=== PATIENT | female | born 1975 | race Two or more races ===

== ENCOUNTER 2016-08-10 06:23 | Inpatient (IN) | payer MEDICAID ==
[~2016-08-10] VITALS: Ht 157.5 cm; Wt 76.2 kg
[2016-08-10 12:00] VITALS: BP 137/85
--- NOTE | 2016-08-10 12:10 | NUR ---
MS/TIMBER SIZER OPERATOR NOTES ADMITTED PATIENT FROM [facility], [place]IA [place], WITH DX: CHOLELITHIASIS, ACUTE PAIN RUQ. UNDER CARE OF DR. WELLS. A/O X 4, WITHOUT SOB, C/O RUQ SHARP, SHOOTING PAIN, 8/10.DENIES NAUSEA VOMITING. VS 137/85, 84, 19, 97.7, 98. FULL BODY ASSESSMENT DONE, IV LINE LEFT WRIST PATENT. CONTINENT B/B , LBM YESTERDAY. AMBULATORY, ASSISTED PATIENT TO THE ROOM, ORIENTED TO THE ROOM, BED, AND CALL LIGHT SYSTEM. NEEDS ANTICIPATED IN TIMELY MANNER, WITH CALL LIGHT WITHIN EASY REACH. WILL CONTINUE TO MONITOR ACCORDINGLY, AND PAGE MD FOR ADMISSION
[2016-08-10] MEDS: MORPHINE SULFATE INJ 2 MG/ML DISP.SYRIN IV PRN ×2 (14:10→16:56)
[2016-08-10] MEDS ORDERED: PIPERACILLIN /TAZOBACTAM 4.5 G in IV D5W 50 ML IV ONE (15:00)
[2016-08-10] MEDS ORDERED: MAG HYDROX/AL HYDROX/SIMETH 30 ML UDC PO PRN (15:30)
[2016-08-10] MEDS ORDERED: ACETAMINOPHEN 325 MG TABLET PO PRN (15:30)
[2016-08-10] MEDS ORDERED: Z GUARD REMEDY 2 OZ OINT TP PRN (15:30)
[2016-08-10] MEDS ORDERED: IV SET PRIMARY PUMP SET 1 EA INFUS.SET MC ONE (15:42)
[2016-08-10] MEDS ORDERED: SECONDARY IV SET 1 EA INFUS.SET MC ONE ×2 (15:44→20:47)
[2016-08-10 15:53] LABS: CALCIUM, SERUM 8.7 mg/dL (8.5-10.1); CREATININE 0.7 mg/dL (0.6-1.3); POTASSIUM 4.2 mmol/L (3.5-5.1)
[2016-08-10] MEDS: ONDANSETRON HCL/PF 4 MG/2 ML VIAL IVP PRN (15:59)
[2016-08-10] MEDS: IV NS 0.9% 1,000 ML IV PRN (15:59)
[2016-08-10 16:00] VITALS: BP_SYST 119; BP_SYST 128; BP_DIAS 69; BP_DIAS 76
[2016-08-10 17:05] LABS: BASOPHILS % (AUTO) 0.3 % (0.0-2.0); EOSINOPHILS # (AUTO) 0.2 /CMM (0.0-0.7); EOSINOPHILS % (AUTO) 2.4 % (0.0-6.0); HEMATOCRIT 37 % (33-45); HEMOGLOBIN 12.2 g/dL (11.5-14.8); LYMPHOCYTES # (AUTO) 2.5 /CMM (0.8-4.8); LYMPHOCYTES % (AUTO) 25.7 % (20.0-44.0); MEAN CORPUSCULAR HEMOGLOBIN 28 PG (26.0-33.0); MEAN CORPUSCULAR HGB CONC 33 g/dl (31.0-36.0); MEAN CORPUSCULAR VOLUME 85 fL (82-100); MONOCYTES # (AUTO) 0.7 /CMM (0.1-1.30); NEUTROPHILS # (AUTO) 6.2 /CMM (1.8-8.9); NEUTROPHILS % (AUTO) 64.6 % (43.0-81.0); PLATELET COUNT (AUTO) 247 /CMM (150-450); RDW COEFFICIENT OF VARIATION 13.5 (11.5-15.0); RED BLOOD CELL COUNT(AUTO) 4.32 MIL/uL (4.0-5.2); WHITE BLOOD COUNT (AUTO) 9.6 K/uL (4.3-11.0)
[2016-08-10 17:19] LABS: INR 0.94 (0.87-1.13); PROTHROMBIN TIME 10.1 SECS (9.5-12.7)
--- NOTE | 2016-08-10 18:30 | NUR ---
CALLED DR PRISCILLA VILLAVICENCIO (SURGEON) REGARDING PT'S SEVERE ABDOMINAL PAIN NOT RELIEVED BY MORPHINE 2 MG IV GIVEN WITH ORDERS TO CALL DR PRISCILLA TORRES FOR PAIN MEDS.DR PRISCILLA TORRES HAS ALREADY BEEN NOTIFIED EARLIER REGARDING MORPHINE GIVEN IS INEFFECTIVE AND MENTIONED THAT PT RECEIVED DILAUDID IN [place] WITH EFFECTIVE RESULT.DR PRISCILLA TORRES REFUSED TO CHANGE PAIN MED TO DILAUDID IV .
[2016-08-10 18:48] LABS: THYROID STIMULATING HORMONE 3.484 uIU/mL (0.358-3.74)
[2016-08-10 19:00] VITALS: BP 145/94
[2016-08-10] MEDS ORDERED: MORPHINE SULFATE INJ 2 MG/ML DISP.SYRIN IV PRN (19:00)
--- NOTE | 2016-08-10 19:09 | NUR ---
MS/RN CLOSING NOTES PAGED DR. WELLS, REPORTED ABOUT PATIENT NOT GETTING RELIEVED FROM CURRENT PAIN MEDICATION ORDER, WAITING FOR RESPONSE. PATIENT IN BED, AWAKE, ALERT, WITHOUT SOB, GUARDING RIGHT UPPER ABDOMEN D/T SHARP PAIN 02/07. REPOSITIONED PATIENT FOR COMFORT. IV PATENT INFUSING 75 CC/H 1/2 N/S TOLERATING WELL, NO S/SX OF FLUID OVERLOAD, RESPIRATION EVEN, UNLABORED. NEEDS ANTICIPATED IN TIMELY MANNER, WITH CALL LIGHT WITHIN EASY REACH ALL THE TIME. WILL ENDORSE TO THE VENEER STAPLER ACCORDINGLY
--- NOTE | 2016-08-10 19:15 | NUR ---
RN NOTE RECEIVED REPORT. PT AAOX4, C/O OF 910 PAIN IN RUQ. NO S/S OF RESPIRATORY DISTRESS - ON ROOM AIR. IV IN LEFT WRIST INTACT AND PATENT, TOLERATING FLUIDS WELL. KEPT NPO. WILL F/U WITH METAL TRIMMER MD REGARDING PAIN MANAGEMENT. YUNIER SANTACRUZ.
[2016-08-10 20:00] VITALS: BP 137/75
--- NOTE | 2016-08-10 20:30 | NUR ---
RN NOTE SPOKE WITH LEROY DIGITAL ACCOUNT MANAGER, ORDERS CARRIED OUT. RECEIVED DILAUDID 1MG IV. WILL MONITOR FOR EFFECTIVENESS.
[2016-08-10] MEDS: HYDROMORPHONE 1 MG/1 ML DISP.SYRIN IV PRN ×2 (20:44→23:42)
[2016-08-10] MEDS: PIPERACILLIN /TAZOBACTAM 3.375 G in IV D5W 50 ML IV SCH (23:42)
[2016-08-11] VITALS (7 sets, daily range): BP systolic 94–113; BP diastolic 57–75
[2016-08-11] MEDS: ONDANSETRON HCL/PF 4 MG/2 ML VIAL IVP PRN ×3 (00:08→18:19)
--- NOTE | 2016-08-11 01:25 | NUR ---
RN NOTE NO DISTRESS NOTED AT THIS TIME. PT DENIES PAIN. WILL CONT TO MONITOR.
[2016-08-11] MEDS: IV NS 0.9% 1,000 ML IV PRN ×2 (02:08→18:20)
[2016-08-11] MEDS: HYDROMORPHONE 1 MG/1 ML DISP.SYRIN IV PRN ×6 (03:25→20:54)
[2016-08-11] MEDS: PIPERACILLIN /TAZOBACTAM 3.375 G in IV D5W 50 ML IV SCH ×2 (05:50→11:27)
--- NOTE | 2016-08-11 06:14 | NUR ---
RN NOTE PT AAOX4, NO C/O PAIN OR DISCOMFORT AT THIS TIME. BREATHING EVEN AND NON-LABORED. ON ROOM AIR. PRN DILAUDID EFFECTIVE T/O SHIFT. NPO STATUS. TOLERATING IV FLUIDS WELL. CALL LIGHT IN REACH, WILL F/U WITH DAY SHIFT FOR TANK.
[2016-08-11 07:01] LABS: BASOPHILS % (AUTO) 0.2 % (0.0-2.0); EOSINOPHILS # (AUTO) 0.3 /CMM (0.0-0.7); EOSINOPHILS % (AUTO) 2.7 % (0.0-6.0); HEMATOCRIT 36 % (33-45); HEMOGLOBIN 11.9 g/dL (11.5-14.8); LYMPHOCYTES # (AUTO) 1.9 /CMM (0.8-4.8); MEAN CORPUSCULAR HEMOGLOBIN 29 PG (26.0-33.0); MEAN CORPUSCULAR HGB CONC 34 g/dl (31.0-36.0); MEAN CORPUSCULAR VOLUME 86 fL (82-100); MONOCYTES # (AUTO) 0.7 /CMM (0.1-1.30); MONOCYTES % (AUTO) 7.1 % (2.0-12.0); PLATELET COUNT (AUTO) 241 /CMM (150-450); RDW COEFFICIENT OF VARIATION 13.5 (11.5-15.0); RED BLOOD CELL COUNT(AUTO) 4.14 MIL/uL (4.0-5.2); WHITE BLOOD COUNT (AUTO) 9.9 K/uL (4.3-11.0)
[2016-08-11 07:02] LABS: BILIRUBIN,TOTAL 0.7 mg/dL (0.2-1.0); CALCIUM, SERUM 8.6 mg/dL (8.5-10.1); CREATININE 0.7 mg/dL (0.6-1.3); MAGNESIUM 1.9 mg/dL (1.8-2.4); PHOSPHORUS 4.1 mg/dL (2.5-4.9); POTASSIUM 3.9 mmol/L (3.5-5.1); TOTAL PROTEIN, SERUM 6.3 g/dL (6.4-8.2)
--- NOTE | 2016-08-11 08:00 | NUR ---
MS/RN Nausea Zofran administered for nausea. Will assess effectiveness.
[2016-08-11] MEDS: PANTOPRAZOLE 40 MG VIAL IV SCH (08:01)
--- NOTE | 2016-08-11 08:54 | NUR ---
MS/RN AM care Assisted to bathroom, able to perform ADL's.
--- NOTE | 2016-08-11 12:27 | NUR ---
MS/RN IVAB IVAB hung as ordered.
[2016-08-11] MEDS ORDERED: FENTANYL PF 100MCG/2ML AMPUL ONE ×2 (14:11→17:25)
[2016-08-11] MEDS ORDERED: ROCURONIUM BROMIDE 50 MG/5 ML ONE (14:11)
[2016-08-11] MEDS ORDERED: SUCCINYLCHOLINE CHLORIDE 20 MG/ML VIAL ONE (14:11)
--- NOTE | 2016-08-11 14:30 | NUR ---
MS/refrigerator room clerk Patient taken to operating room, chart with patient.
[2016-08-11] MEDS ORDERED: LIDOCAINE HCL/PF 1% 30 ML SDV ONE (14:33)
[2016-08-11] MEDS ORDERED: IOHEXOL 240MG/ML 50 ML IV ONE (14:33)
[2016-08-11] MEDS ORDERED: BUPIVACAINE MPF W/EPI 0.25% 30 ML VIAL ONE ×2 (14:33)
[2016-08-11] MEDS ORDERED: MIDAZOLAM HCL 2 MG/2ML VIAL ONE (14:34)
[2016-08-11] MEDS ORDERED: HYDROMORPHONE INJ 2 MG/ML DISP.SYRIN ONE (17:13)
[2016-08-11] MEDS ORDERED: ANESTHESIA TRAY IN PYXIS 1 EA TRAY MC ONE (17:15)
--- NOTE | 2016-08-11 18:10 | NUR ---
MS/RN Back from OR Patient back from OR, s/p lap audrey. Three incision's with ROSEMARIE, 100ml output. Vital signs taken as per hospital policy, all remain stable. at bedside, will continue to monitor.
--- NOTE | 2016-08-11 18:55 | NUR ---
MS/RN End note No changes at this time, vital signs post surgery remain stable, IV fluids infusing at 75ml/hr via left hand heplock, no signs of infection. Patient provided with warm blanket and pillow to hold against stomach whil coughing to support. at bedside, update provided to both patient and , all questions answered. Will endorse to night shift supervisor.
--- NOTE | 2016-08-11 19:35 | NUR ---
MSRN FULLY AWAKE, AT BEDSIDE, SITTING UP, ENCOURAGED AMBULATION. SAFETY PRECAUTIONS EMPHASIZED, DENIES DIZZINESS. HAS BEEN HAVING GAS PAINS AND PAIN ON RIGHT LATERAL ROSEMARIE SITE. LAP SITES CLEAN AND DRY, NO BLEEDING, ROSEMARIE WITH SANGUINOUS DRAINAGE IN [place]. PAIN MGT AND PLAN OF CARE EMPHASIZED, WELL UNDERSTOOD. PRESENT IVF INFUSING WELL, KEPT NPO, ICECHIPS TOLERATED. NO N/V.
--- NOTE | 2016-08-11 20:55 | NUR ---
MDRN SEVERE ABD DISCOMFORTS SONIA RIGHT LATERAL, DILAUDED 1MG IVP ADMINISTERED.
--- NOTE | 2016-08-11 22:20 | NUR ---
MSRN PLACE CALL TO DR. BECERRIL FOR FURTHER MGT OF PAIN AND ANXIETY.
[2016-08-11] MEDS ORDERED: ZOLPIDEM TARTRATE 5 MG TABLET ONE (22:25)
[2016-08-11] MEDS ORDERED: ZOLPIDEM TARTRATE 5 MG TABLET PO ONE (22:30)
--- NOTE | 2016-08-11 22:30 | NUR ---
MSRN RETURN CALL FROM , ORDERS RECEIVED. ONETIME AMBIEN 5MG ORDERED. NO MED FOR GAS PAINS, EXPLAINED TO PATIENT NEEDED TO INCREASE AMBULATION AND SPACE ACTIVITY. SAT ON BSC FOR NOW, ABLE TO BURP.
[2016-08-12] MEDS: ONDANSETRON HCL/PF 4 MG/2 ML VIAL IVP PRN ×3 (00:04→15:17)
[2016-08-12] MEDS: HYDROMORPHONE 1 MG/1 ML DISP.SYRIN IV PRN ×5 (00:04→15:17)
--- NOTE | 2016-08-12 00:05 | NUR ---
MSRN NAUSEATED, ZOFRAN GIVEN. FOR PAIN ADMINISTERED DILAUDED 1 MG IVP. BEDREST INSTRUCTED.
[2016-08-12] MEDS ORDERED: SECONDARY IV SET 1 EA INFUS.SET MC ONE (02:26)
[2016-08-12] MEDS: PIPERACILLIN /TAZOBACTAM 3.375 G in IV D5W 50 ML IV SCH ×6 (02:30→23:29)
--- NOTE | 2016-08-12 02:45 | NUR ---
MSRN ZOSYN DOSE FOR MIDNIGHT ADMINISTERED LATE AT THIS TIME.
--- NOTE | 2016-08-12 06:30 | NUR ---
MSRN ROSEMARIE DRAIN 60 CC OBTAINED. MEDICATED FOR ABD PAIN DILAUDED AND ZOFRAN FOR NAUSEA. BEDREST INSTRUCTED
[2016-08-12 07:02] LABS: CALCIUM, SERUM 7.7 mg/dL (8.5-10.1); CREATININE 0.6 mg/dL (0.6-1.3); POTASSIUM 3.6 mmol/L (3.5-5.1)
[2016-08-12 07:03] LABS: BASOPHILS % (AUTO) 0.3 % (0.0-2.0); EOSINOPHILS % (AUTO) 0.3 % (0.0-6.0); HEMATOCRIT 35 % (33-45); HEMOGLOBIN 11.4 g/dL (11.5-14.8); LYMPHOCYTES # (AUTO) 1.7 /CMM (0.8-4.8); LYMPHOCYTES % (AUTO) 15.1 % (20.0-44.0); MEAN CORPUSCULAR HEMOGLOBIN 28 PG (26.0-33.0); MEAN CORPUSCULAR HGB CONC 33 g/dl (31.0-36.0); MEAN CORPUSCULAR VOLUME 86 fL (82-100); MONOCYTES # (AUTO) 0.8 /CMM (0.1-1.30); MONOCYTES % (AUTO) 6.9 % (2.0-12.0); NEUTROPHILS # (AUTO) 8.6 /CMM (1.8-8.9); NEUTROPHILS % (AUTO) 77.4 % (43.0-81.0); PLATELET COUNT (AUTO) 246 /CMM (150-450); RDW COEFFICIENT OF VARIATION 13.4 (11.5-15.0); RED BLOOD CELL COUNT(AUTO) 4.02 MIL/uL (4.0-5.2); WHITE BLOOD COUNT (AUTO) 11.1 K/uL (4.3-11.0)
--- NOTE | 2016-08-12 07:49 | NUR ---
MS/RN Patient received Patient received from cage shift manager, sleeping, pain medication last given at 0600. No distress, will continue to monitor.
[2016-08-12 08:22] VITALS: BP 109/66
[2016-08-12] MEDS: PANTOPRAZOLE 40 MG VIAL IV SCH (09:01)
[2016-08-12] MEDS: IV NS 0.9% 1,000 ML IV PRN (09:01)
[2016-08-12 10:18] LABS: ALBUMIN 2.8 g/dL (3.4-5.0); BILIRUBIN,DIRECT 0.1 mg/dL (0.0-0.2); BILIRUBIN,TOTAL 0.6 mg/dL (0.2-1.0); TOTAL PROTEIN, SERUM 6.2 g/dL (6.4-8.2)
--- NOTE | 2016-08-12 10:30 | NUR ---
MS/RN S/B Dr Pascual Seen by Dr Pascual - full liquid diet, simethicone for gas pain and liver function test ordered. From surgical standpoint, cleared for discharge. Needs to follow up in office in one week for drain removal.
--- NOTE | 2016-08-12 11:00 | NUR ---
MS/RN S/B Nickolas Millan MARKETING SUPPORT SPECIALIST Seen by MARKETING SUPPORT SPECIALIST - encouraged to ambulate, will be reassessed later this afternoon, possible for discharge.
[2016-08-12] MEDS: DOCUSATE SODIUM 100 MG CAPSULE PO SCH (11:34)
[2016-08-12] MEDS: HYDROCODONE/APAP 10/325MG 1 EA TABLET PO PRN ×2 (11:34→18:15)
[2016-08-12] MEDS: SIMETHICONE 80 MG TAB.CHEW PO PRN (13:42)
--- NOTE | 2016-08-12 14:48 | NUR ---
MS/RN Rounds Patient now able to ambulate more freely without as much pain. Tolerating oral pain medication, no nausea.
[2016-08-12 16:25] VITALS: BP 116/78
--- NOTE | 2016-08-12 18:00 | NUR ---
MS/RN Pain Patient continues to complain of severe gas pain, despite being given dilaudid and norco. Nickolas Millan called and informed. Per PHOTOGRAPHIC EQUIPMENT ASSEMBLER, no other medication can be given to help relieve the gas pain, best option is to encourage ambulation. Patient made aware.
[2016-08-12 19:00] VITALS: BP 103/58
--- NOTE | 2016-08-12 19:33 | NUR ---
RN NOTE; RECEIVED PT IN BED W/ FAMILY AT THE BED SIDE. BREATHING EVENLY. NO SOB. NO DISTRESS. W/ ON AND OFF C/O ABD. PAIN. NEEDS ATTENDED. BED LOW LOCKED. CALL LIGHT WITHIN REACH . WILL CONT TO MONITOR
--- NOTE | 2016-08-12 19:45 | NUR ---
MS/RN End note Patient's at nursing station and requesting for surgeon to be called due to pain, stated that he was worried that maybe a clip that was used during surgery had come loose or that there was a blockage. requesting that CT scan be ordered. Dr Pascual called via exchange. Per Dr Pascual, pain is too be expected after surgery, order given for toradol 30mg IV q6 hrs, CBC, CMP, lipase and amylase. Ice pack to be applied to incision sites. CT scan not ordered as not required. Patient remains with gas pain not relieved by narcotics, will endorse to overnight cashier.
[2016-08-12] MEDS: KETOROLAC TROMETHAMINE INJ 30 MG/ML VIAL IV PRN (20:16)
--- NOTE | 2016-08-12 20:16 | NUR ---
TORADOL GIVEN FOR C/O ABD PAIN. WILL CONT TO MONITOR
[2016-08-12 20:58] VITALS: BP 103/58
[2016-08-13] MEDS: HYDROMORPHONE 1 MG/1 ML DISP.SYRIN IV PRN ×2 (02:03→08:23)
--- NOTE | 2016-08-13 02:05 | NUR ---
DILAUDID GIVEN FOR C/O SEVERE ABD PAIN. WILL CONT TO MONITOR
[2016-08-13] MEDS: PIPERACILLIN /TAZOBACTAM 3.375 G in IV D5W 50 ML IV SCH ×3 (05:43→17:20)
[2016-08-13] MEDS: IV NS 0.9% 1,000 ML IV PRN (05:51)
[2016-08-13] MEDS: HYDROCODONE/APAP 10/325MG 1 EA TABLET PO PRN ×3 (05:51→18:28)
--- NOTE | 2016-08-13 05:52 | NUR ---
NORCO GIVEN FOR C/O MODERATE ABD PAIN. PT WAS ASSISTED TO THE BATHROOM AND BACK IN BED.WILL CONT TO MONITOR
[2016-08-13 06:43] LABS: BASOPHILS % (AUTO) 0.3 % (0.0-2.0); EOSINOPHILS # (AUTO) 0.3 /CMM (0.0-0.7); EOSINOPHILS % (AUTO) 2.8 % (0.0-6.0); HEMATOCRIT 30 % (33-45); HEMOGLOBIN 10.1 g/dL (11.5-14.8); LYMPHOCYTES # (AUTO) 2.3 /CMM (0.8-4.8); LYMPHOCYTES % (AUTO) 23.5 % (20.0-44.0); MEAN CORPUSCULAR HEMOGLOBIN 29 PG (26.0-33.0); MEAN CORPUSCULAR HGB CONC 34 g/dl (31.0-36.0); MEAN CORPUSCULAR VOLUME 85 fL (82-100); MONOCYTES # (AUTO) 0.8 /CMM (0.1-1.30); MONOCYTES % (AUTO) 8.1 % (2.0-12.0); NEUTROPHILS # (AUTO) 6.5 /CMM (1.8-8.9); NEUTROPHILS % (AUTO) 65.3 % (43.0-81.0); PLATELET COUNT (AUTO) 206 /CMM (150-450); RDW COEFFICIENT OF VARIATION 13.5 (11.5-15.0); RED BLOOD CELL COUNT(AUTO) 3.53 MIL/uL (4.0-5.2); WHITE BLOOD COUNT (AUTO) 9.9 K/uL (4.3-11.0)
--- NOTE | 2016-08-13 06:54 | NUR ---
RN NOTE; PT IN BED SLEEPING, AROUSES EASILY. BREATHING EVENLY. NO C/O PAIN AT THIS TIME. PAIN MEDICATION EFFECTIVE. ASSISTED W/ ADLS . ROSEMARIE BAG IN PLACE. DRAINING WELL. CALL LIGHT WITHIN REACH. WILL CONT TO MONITOR AND WILL ENDORSE TO QM SHIFT FOR TANK,
[2016-08-13 06:55] LABS: ALBUMIN 2.6 g/dL (3.4-5.0); BILIRUBIN,TOTAL 0.5 mg/dL (0.2-1.0); CALCIUM, SERUM 8.2 mg/dL (8.5-10.1); CREATININE 0.6 mg/dL (0.6-1.3); POTASSIUM 3.4 mmol/L (3.5-5.1); TOTAL PROTEIN, SERUM 5.8 g/dL (6.4-8.2)
[2016-08-13 08:00] VITALS: BP 139/79
--- NOTE | 2016-08-13 08:00 | NUR ---
MS RN NOTES PATIENT IN BED RESTING NO SOB OR ACUTE DISTRESS NOTED. IV INTACT PATENT, BED IN LOW LOCKED POSITION CALL LIGHT WITHIN REACH. WILL CONTINUE TO MONITOR.
[2016-08-13] MEDS: PANTOPRAZOLE 40 MG VIAL IV SCH (08:23)
[2016-08-13] MEDS: DOCUSATE SODIUM 100 MG CAPSULE PO SCH ×2 (08:23→17:20)
[2016-08-13] MEDS: KETOROLAC TROMETHAMINE INJ 30 MG/ML VIAL IV PRN ×2 (10:59→21:05)
[2016-08-13] MEDS ORDERED: POTASSIUM CHLORIDE 20 MEQ POWDER PACKET PO SCH (11:30)
--- NOTE | 2016-08-13 12:00 | NUR ---
MS RN NOTES PATIENT SEEN AND EVALUATED BY BASIM GARCÍA ORDERS TO GIVE MOM NOW SINCE PATIENT HAS NOT HAD BM YET AND CHANGE ORDERS TO REGULAR DIET. ORDERS NOTED AND CARRIED OUT.
[2016-08-13] MEDS: MAGNESIUM HYDROXIDE 30 ML UDC PO PRN ×2 (12:27→21:08)
[2016-08-13 16:00] VITALS: BP 128/81
--- NOTE | 2016-08-13 18:22 | NUR ---
MS RN NOTES PATIENT IN BED RESTING PAIN CONTROLLED WITH MEDICATION. ALL DUE MEDICATIONS GIVEN. ALL NEEDS MET. PATIENT ENCOURAGED TO AMBULATE TOLERATED. NOTED AMBULATING IN HALLWAY. NO BM NOTED ON THIS SHIFT MD AWARE. WILL ENDORSE TO PM SHIFT.
[2016-08-13] MEDS: SIMETHICONE 80 MG TAB.CHEW PO PRN (18:29)
[2016-08-13] MEDS ORDERED: HYDROMORPHONE 1 MG/1 ML DISP.SYRIN IV PRN (18:30)
[2016-08-13 19:00] VITALS: BP_SYST 105; BP_SYST 111; BP_DIAS 52; BP_DIAS 73
--- NOTE | 2016-08-13 19:30 | NUR ---
RN NOTE; RECEIVED PT IN BED AWAKE AND ALERT. BREATHING EVENLY. NO SOB. NO DISTRESS. ROSEMARIE IN PLACE DRAINING. REPORTED RELIEF OF PAIN TO MILD ON ABD AREA. NEEDS ATTENDED. BED LOW LOCKED. CALL LIGHT WITHIN REACH, WILL CONT TO MONITOR
[2016-08-13 20:00] VITALS: BP 111/73
--- NOTE | 2016-08-13 21:05 | NUR ---
TORADOL GIVEN ORDERED PER PT'S REQUEST AND C/O PAIN .WILL CONT TO MONITOR. PT REFUSED TO BE CONNECTED TO THE IVF HYDRATION AT THIS TIME
[2016-08-14] MEDS: PIPERACILLIN /TAZOBACTAM 3.375 G in IV D5W 50 ML IV SCH ×3 (00:45→11:23)
[2016-08-14] MEDS: HYDROCODONE/APAP 10/325MG 1 EA TABLET PO PRN ×3 (06:28→15:08)
--- NOTE | 2016-08-14 06:30 | NUR ---
RN NOTE; PT IN BED AWAKE, . RR EVEN AND UNLABORED. NO DISTRESS . NO ACUTE CHANGES DURING THE NIGHT . ASSISTED W/ ADLS AND BATHROOM.NORCO GIVEN FOR C/O MOD. ABD PAIN.. ROSEMARIE IN PLACE DRAINING . CALL LIGHT WITHIN REACH. WILL CONT TO MONITOR AND WILL ENDORSE TO AM SHIFT FOR TANK.
[2016-08-14 07:20] LABS: CALCIUM, SERUM 8.6 mg/dL (8.5-10.1); CREATININE 0.6 mg/dL (0.6-1.3); POTASSIUM 3.9 mmol/L (3.5-5.1)
[2016-08-14 08:00] VITALS: BP 115/63
--- NOTE | 2016-08-14 08:00 | NUR ---
MS RN NOTES PATIENT IN BED RESTING NO SOB OR ACUTE DISTRESS NOTED. DENIES ANY PAIN OR DISCOMFORT. IV INTACT PATENT. BED IN LOW LOCKED POSITION, CALL LIGHT WITHIN REACH. WILL CONTINUE TO MONITOR.
[2016-08-14] MEDS: DOCUSATE SODIUM 100 MG CAPSULE PO SCH (08:35)
[2016-08-14] MEDS: PANTOPRAZOLE 40 MG VIAL IV SCH (08:36)
--- NOTE | 2016-08-14 09:30 | NUR ---
MS RN NOTES PATIENT WITH BM X1 .
--- NOTE | 2016-08-14 14:00 | NUR ---
MS RN NOTES PATIENT SEEN AND EVALUATED BY DEMARCO BROKE MAN ORDERS NOTED AND ROMAINE OUT.
[2016-08-14] MEDS ORDERED: METR500T PO (14:51)
[2016-08-14] MEDS ORDERED: HYDR-3326 PO (14:51)
[2016-08-14] MEDS ORDERED: CIPR-262 PO (14:51)
--- NOTE | 2016-08-14 16:00 | NUR ---
MS RN NOTES PATIENT DISCHARGED HOME IN STABLE CONDITION. NO SOB OR ACUTE DISTRESS NOTED. ROSEMARIE DRAIN INTACT PATENT DRAINING SEROSANGUINEOUS 50ML. MD AWARE OF ALL ABNORMAL LABS. DISCHARGED HOME WITH . INSTRUCTED TO FOLLOW UP WITH DR. JEROME VILLAVICENCIO FOR AB DRAIN REMOVAL. BELONGINGS LIST SIGNED. BELONGINGS ACCOUNTED FOR. PRESCRIPTION GIVEN TO PATIENT. VERBALIZED UNDERSTANDING OF DISCHARGE INSTRUCTIONS. IV REMOVED WITH MINIMAL BLEEDING. ID BAND REMOVED. ESCORTED TO CAR.
== END 2016-08-14 16:30 | disposition home or self-care (01) | DRG 263 ==
LOC: MEDSG2 11:56
DX: K80.00 Calculus of gallbladder with acute cholecystitis without obstruction (principal); N17.0 Acute kidney failure with tubular necrosis; K29.70 Gastritis, unspecified, without bleeding; Z83.3 Family history of diabetes mellitus; Z68.31 Body mass index [BMI] 31.0-31.9, adult; D72.828 Other elevated white blood cell count; E87.6 Hypokalemia; K59.00 Constipation, unspecified; R74.0 Nonspecific elevation of levels of transaminase and lactic acid dehydrogenase [LDH]; R94.5 Abnormal results of liver function studies
CPT/HCPCS: 36415; 71010-TC; 74000-TC; 80048-TC; 80053-TC; 80061-TC; 80076-TC; 82150-TC; 83605-TC; 83690-TC; 83735-TC; 84100-TC; 84443-TC; 84703-TC; 85025-TC; 85610-TC; 86850-TC; 87081-TC; 88304-TC; 88305-TC; C9113; J0330; J0690; J1100; J1170; J1885; J2250; J2270; J2405; J2543; J2704; J2710; J3010; J3490; J7030; J7060; Q9966

== ENCOUNTER 2016-08-17 12:55 | Outpatient (CLI) | payer MEDICAID ==
[~2016-08-17 12:55] MED LIST: CIPR-262 PO; HYDR-3326 PO; METR500T PO
== END 2016-08-17 23:59 | disposition home or self-care (01) ==
LOC: WOU 12:55
PROVIDERS: ATTEND Surgery
DX: Z48.815 Encounter for surgical aftercare following surgery on the digestive system (principal); Z90.49 Acquired absence of other specified parts of digestive tract; K27.9 Peptic ulcer, site unspecified, unspecified as acute or chronic, without hemorrhage or perforation; E66.9 Obesity, unspecified; Z68.30 Body mass index [BMI] 30.0-30.9, adult
CPT/HCPCS: G0463